=== PATIENT | male | born 1950 | race Caucasian/White ===

== ENCOUNTER 2018-08-20 09:22 | Emergency (ER) | payer OTHER, MEDICARE ==
--- NOTE | 2018-08-20 09:26 | EDPHY ---
H & P Time Seen by Provider: 08/20/18 09:25 HPI/ROS: CHIEF COMPLAINT: Acute left lower extremity radiculopathy and left buttock pain HISTORY OF PRESENT ILLNESS: 67-year-old male with remote history of colon cancer with partial colectomy arrives via private vehicle complaining of acute left buttock pain and left lower extremity radiculopathy. Pain started 2 days ago. He describes the day before having climbed up and down a ladder several times but notes no definitive inciting event, no trauma or fall. Pain is reproducible with certain movements. The left lower extremity pain is new. Denies incontinence or retention. Denies fever or chills. Denies chest pain or dyspnea. Denies IV drug use or recent surgeries. PRIMARY CARE PROVIDER:Dr. Jamie Wesley REVIEW OF SYSTEMS: A ten point review of systems was performed and is negative with the exception of the items mentioned in the HPI PAST MEDICAL & SURGICAL HISTORY: Hyperlipidemia. Colon cancer. Partial colectomy SOCIAL HISTORY: Nonsmoker. . PHYSICAL EXAM (Prior to examination, patient consented to physical exam, hands were washed and my usual and customary physical exam procedures followed) 1) GENERAL: Well-developed, well-nourished, alert and oriented. Observed ambulating with an antalgic gait, ambulating slowly with a cane. He is laying in a prone position partially on the bed 2) HEAD: Normocephalic, atraumatic 3) HEENT: Pupils equal, round, reactive to light bilaterally. Sclera anicteric. Nasopharynx, oropharynx, clear, no lesions. 4) NECK: Full range of motion, no meningeal signs. 5) LUNGS: Clear auscultation bilaterally, no wheezes, no rhonchi, no retractions. 6) HEART: Regular rate and rhythm, no murmur, no heave, no gallop. 7) ABDOMEN: No guarding, no rebound, no focal tenderness, negative McBurney's, negative Ovalle's, negative Rovsing's, negative peritoneal sign, 8) MUSCULOSKELETAL: Moving all extremities, no focal areas of tenderness, no obvious trauma. No peripheral edema or discoloration. 9) BACK: No paraspinous lumbar pain. No skin lesions or vesicles to the back or leg. Tender to palpation left buttock general location of the piriformis muscle.. No CVA tenderness, no midline vertebral tenderness, no fluctuance, no step-off, no obvious trauma, no visual or palpable abnormality. Patella, Achilles reflexes intact to bilateral strength 5/5 10) SKIN: No rash, no petechiae. 11) NEURO: Awake, alert, and oriented to person, place and time. Answers questions appropriately. There were no obvious focal neurologic abnormalities. No cerebellar dysfunction. Normal steady gait. Upper and lower extremities bilaterally with strength 5 / 5, reflexes 2+.. DIFFERENTIAL DIAGNOSIS: In no particular order, including but not limited to, malignancy, pathologic fracture, fracture, sprain/strain, cauda equina, spinal infectious etiology. Constitutional: Initial Vital Signs Temperature (C) 36.6 C 08/20/18 09:37 Heart Rate 52 L 08/20/18 09:37 Respiratory Rate 16 08/20/18 09:37 Blood Pressure 165/92 H 08/20/18 09:37 O2 Sat (%) 95 08/20/18 09:37 O2 Delivery Mode Room Air O2 (L/minute) 2 Allergies/Adverse Reactions: No Known Allergies Allergy (Unverified 08/20/18 09:37) Home Medications: Medication Instructions Recorded Cyclobenzaprine [Flexeril 10 MG 10 mg PO TID #15 tab 08/20/18 (RX)] methylPREDNISolone [Medrol Dose 4 mg PO DAILY #1 ea 08/20/18 Nelson] oxyCODONE/APAP 5/325 [Percocet 1 tab PO Q6 #10 tab 08/20/18 5/325] Medical Decision Making - Diagnostics Imaging Results: Imaging Impressions Lumbar Spine MRI 08/20/18 09:41 Impression: 1. Multilevel disk and hypertrophic degenerative changes are noted with findings most pronounced at L3-L4 where there is moderately severe central canal stenosis, bilateral lateral recess stenosis and left neural foraminal impingement. 2. See above report for findings at specific levels. Results called and discussed with Chris LAWSON on 08/20/2018 at 13:08.. Images reviewed myself Procedures: 9:40 a.m.: I have evaluated this patient. He has a remote history of colon cancer, complaining of new onset left lower extremity radiculopathy in absence of trauma. He has no neurologic defects/deficits on exam. I have recommended MRI of the lumbar spine which he is agreeable with. I have offered IV or IM analgesia which he declines stating that he only wants oral medication due to fear of needles. I discussed case with secondary supervising physician Dr. Carmela Thurman at this time as well. ED Course/Re-evaluation: 9:45 a.m.: I evaluated the patient, he notes new onset left lower extremity radiculopathy with history of colon cancer. I recommended MRI to evaluate for lytic lesion and/or other acute pathology. Indications risks benefits discussed with patient he consents. 2:26 p.m.: Re-evaluation. Discussed the MRI results with the patient. He is feeling improvement. I have offered admission however he declines this stating that he feels he is able to care for himself at home. He will be given referral to Neurosurgery. Given red flag signs and symptoms and reasons to return to the emergency department. Offered crutches which he declines. - Data Points Medications Given: Discontinued Medications Cyclobenzaprine HCl (Flexeril) 10 mg PO EDNOW ONE Stop: 08/20/18 09:43 Last Admin: 08/20/18 09:44 Dose: 10 mg Dexamethasone (Decadron Injection) 8 mg IVP EDNOW ONE Stop: 08/20/18 10:21 Last Admin: 08/20/18 10:38 Dose: 8 mg Diazepam (Valium) 5 mg IVP EDNOW ONE Stop: 08/20/18 10:21 Last Admin: 08/20/18 10:30 Dose: 5 mg Hydromorphone HCl (Dilaudid) 1 mg IVP EDNOW ONE Stop: 08/20/18 11:27 Last Admin: 08/20/18 11:28 Dose: 1 mg Ketorolac Tromethamine (Toradol) 15 mg IVP EDNOW ONE Stop: 08/20/18 10:21 Last Admin: 08/20/18 10:37 Dose: 15 mg Ondansetron HCl (Zofran) 4 mg IVP EDNOW ONE Stop: 08/20/18 11:27 Last Admin: 08/20/18 11:28 Dose: 4 mg Departure - Departure Disposition: Home, Routine, Self-Care Clinical Impression: Lumbar canal stenosis Qualifiers: Neurogenic claudication status: without neurogenic claudication Qualified Code( s): M48.061 - Spinal stenosis, lumbar region without neurogenic claudication Low back pain Qualifiers: Chronicity: acute Back pain laterality: left Sciatica presence: with sciatica Sciatica laterality: sciatica of left side Qualified Code(s): M54.42 - Lumbago with sciatica, left side Condition: Good Instructions: Acute Low Back Pain (ED) Additional Instructions: Seek medical attention if you develop new or worsening pain, if you develop bladder or bowel dysfunction, numbness around your perineum, foot drop, or any other symptoms that concern you. Referrals: Adalid Bliss MD [Medical Doctor] - As per Instructions Prescriptions: Cyclobenzaprine [Flexeril 10 MG (RX)] 10 mg PO TID #15 tab methylPREDNISolone [Medrol Dose Nelson] 4 mg PO DAILY #1 ea oxyCODONE/APAP 5/325 [Percocet 5/325] 1 tab PO Q6 #10 tab
[2018-08-20] MEDS ORDERED: CYCLOBENZAPRINE 10 MG TAB PO ONE (09:42)
[2018-08-20] MEDS ORDERED: KETOROLAC 15 MG/1 ML SDV IVP ONE (10:20)
[2018-08-20] MEDS ORDERED: DIAZEPAM 10 MG/2 ML SYR IVP ONE (10:20)
[2018-08-20] MEDS ORDERED: DEXAMETHASONE 4 MG/ML VIAL IVP ONE (10:20)
[2018-08-20] MEDS ORDERED: ONDANSETRON 4 MG/2 ML VIAL IVP ONE (11:26)
[2018-08-20] MEDS ORDERED: HYDROmorphONE/DILAUDID 1 MG/ML INJ IVP ONE (11:26)
[2018-08-20 14:39] VITALS: BP 140/70
== END 2018-08-20 15:08 | disposition home or self-care (01) ==
DX: M48.061 Spinal stenosis, lumbar region without neurogenic claudication (principal); M51.16 Intervertebral disc disorders with radiculopathy, lumbar region; Z85.038 Personal history of other malignant neoplasm of large intestine
CPT/HCPCS: 72148; 96374; 96375; 99285; J1100; J1170; J1885; J2405; J3360

== ENCOUNTER 2018-10-08 08:03 | Inpatient (IN) | payer OTHER, MEDICARE | END 2018-10-13 14:07 | disposition home or self-care (01) | LOC: FSGY 08:03 → F3N 11:23 ==